=== PATIENT | female | born 1990 | race American Indian/Alaskan Native ===

== ENCOUNTER 2017-03-29 08:07 | Emergency (ER) | payer SELFPAY ==
[2017-03-29 08:18] VITALS: BP 131/85
--- NOTE | 2017-03-29 09:16 | Emergency Department Report ---
HPI - General Chief Complaint: Pain General - HPI HPI: 26-year-old -[place] female that's morbidly obese comes in for complaint of right breast pain that's been going on for approximately one week. Patient reports that the pain is worse when she worse or brawl causes burning sensation around the side of her nipple. So reports that she'll get pain in her upper right chest that is intermittent and it will last no more than 30 seconds it is sharp she denies any discharge from her nipples patient also reports her last menstrual period was 2 months ago. Patient reports no past medical history currently takes no medication family history diabetes and hypertension both parents are alive and healthy as well. Patient denies any family history of breast cancer. ED Past Medical Hx - Past Medical History Previous Medical History?: Yes Hx Asthma: Yes - Surgical History Past Surgical History?: No - Social History Smoking Status: Current Every Day Smoker Substance Use Type: None ED Review of Systems ROS: Stated complaint: RIGHT BREAST PAIN Other details as noted in HPI Constitutional: denies: chills, fever Eyes: denies: eye pain, eye discharge, vision change ENT: denies: ear pain, throat pain Respiratory: denies: cough, shortness of breath, wheezing Cardiovascular: other (right upper chest pain that is intermittent) Endocrine: no symptoms reported Gastrointestinal: denies: abdominal pain, nausea, diarrhea Genitourinary: denies: urgency, dysuria, discharge Musculoskeletal: denies: back pain, joint swelling, arthralgia Skin: denies: rash, lesions Neurological: denies: headache, weakness, paresthesias Psychiatric: denies: anxiety, depression Hematological/Lymphatic: denies: easy bleeding, easy bruising Physical Exam - Physical Exam Vital Signs: Vital Signs 03/29/17 08:14 Temperature 97.6 F Pulse Rate 108 H Respiratory 16 Rate Blood Pressure 131/85 O2 Sat by Pulse 100 Oximetry Physical Exam: GENERAL APPEARANCE: Well developed, well nourished, in no acute distress. SKIN: Inspection of the skin reveals hyperpigmented lesions on the chest with no discharge nontender nonfluctuant appears to be chronic. HEENT: The sclerae were anicteric and conjunctivae were pink and moist. Extraocular movements were intact and pupils were equal, round, and reactive to light with normal accommodation. External inspection of the ears and nose showed no scars, lesions, or masses. NECK: Supple and symmetric. There was no thyroid enlargement, and no tenderness , or masses were felt. CHEST: Normal AP diameter and normal contour without any kyphoscoliosis. LUNGS: Auscultation of the lungs revealed normal breath sounds without any other adventitious sounds or rubs. CARDIOVASCULAR: There was a regular rate and rhythm without any murmurs, gallops , rubs. The carotid pulses were normal and 2+ bilaterally without bruits. Peripheral pulses were 2+ and symmetric. ABDOMEN: Soft and nontender with normal bowel sounds. The liver span was approximately 5-6 cm in the right midclavicular line by percussion. The liver edge was nontender. The spleen was not palpable. There were no inguinal or umbilical hernias noted. No ascites was noted. LYMPH NODES: No lymphadenopathy was appreciated in the neck, axillae or groin. MUSCULOSKELETAL: Gait was normal. There was no tenderness or effusions noted. Muscle strength and tone were normal. EXTREMITIES: No cyanosis, clubbing or edema. NEUROLOGIC: Alert and oriented x 3. Normal affect. Gait was normal. Normal deep tendon reflexes with no pathological reflexes. Sensation to touch was normal. ED Course Vital Signs 03/29/17 08:14 Temperature 97.6 F Pulse Rate 108 H Respiratory 16 Rate Blood Pressure 131/85 O2 Sat by Pulse 100 Oximetry ED Medical Decision Making - Medical Decision Making Patient's been evaluated by this provider fast track. Review of history and physical. CBC stable we will refer patient to [facility] [place] for further evaluation. Patient currently is in no pain at this time. Discussed case with Dr. Manley he agrees with my plan. Critical care attestation.: If time is entered above; I have spent that time in minutes in the direct care of this critically ill patient, excluding procedure time. ED Disposition Clinical Impression: Right-sided chest wall pain Disposition: DC-01 TO HOME OR SELFCARE Is pt being admited?: No Does the pt Need Aspirin: No Condition: Stable Instructions: Chest Pain (ED) Additional Instructions: I recommend she follow up with [facility] [place] for further evaluation. Their information as listed below. Referrals: [facility] [Outside] - 3-5 Days Forms: Work/School Release Form(ED)
== END 2017-03-29 09:27 | disposition home or self-care (01) ==
LOC: ED 08:07
DX: N64.4 Mastodynia (principal); F17.200 Nicotine dependence, unspecified, uncomplicated
CPT/HCPCS: 99282